=== PATIENT | female | born 1965 | race Two or more races ===

== ENCOUNTER 2018-08-30 08:22 | Day surgery (SDC) | payer MEDICAID ==
[2018-08-28 12:54] LABS: Basophils # (auto) 0 uL; Basophils % (auto) 0.7 % (0.0-2.0); Eosinophils # (auto) 0.2 uL; Hematocrit 44.8 % (36.0-46.0); Hemoglobin 15.1 g/dL (12.2-16.2); Lymphocytes # (auto) 2.1 uL; Lymphocytes % (auto) 32.3 % (10.0-50.0); Mean Corpuscular Hgb Conc. 33.8 g/dL (32.0-36.0); Mean Corpuscular Volume 91.8 fL (80.0-100.0); Monocytes # (auto) 0.7 uL; Monocytes % (auto) 10.9 % (0.0-12.0); Neutrophils # (auto) 3.4 uL; Neutrophils % (auto) 53.1 % (37.0-80.0); Nucleated Red Blood Cells % 0.1 %; Platelet Count (auto) 277 10^3/uL (140-450); Red Blood Cells 4.88 10^6/uL (4.0-5.20); Red Cell Distribution Width 13.7 % (11.8-14.3); White Blood Cell 6.4 10^3/uL (4.4-10.8)
[2018-08-28 13:24] LABS: Urine Bacteria NONE SEEN /hpf (None Seen); Urine Blood Negative /uL (Negative); Urine WBC <1 /hpf (0 - 5)
[2018-08-28 13:33] LABS: INR < 0.93 (0.9-1.15); Partial Thromboplastin Time 25.4 sec (23.64-32.05)
[2018-08-28 13:43] LABS: Albumin 3.5 g/dL (3.4-5.0); Calcium 9.4 mg/dL (8.5-10.1); Potassium 3.8 mmol/L (3.5-5.1)
[2018-08-28 13:47] LABS: BUN/Creatinine Ratio 24.1; Bilirubin, Total 0.6 mg/dL (0.2-1.0); Total Protein 7.9 g/dL (6.4-8.2)
[~2018-08-30] VITALS: Ht 152.4 cm; Wt 105.2 kg
[~2018-08-30 08:22] MED LIST: ALBUAER3 IN; HYDR25TA4 PO; IBUP800T24 PO; LEVO175T31 PO; LOSA-49 PO; POTA8TAB2 PO
[2018-08-30] MEDS ORDERED: ceFAZolin 1GM/50ML 50 ML IV ONE (09:09)
[2018-08-30] MEDS ORDERED: NEOMYCIN-BACITRACIN-POLYM 15GM TOP OINT TOP ONE (10:46)
[2018-08-30] MEDS ORDERED: ROPIVACAINE 0.5% (5MG/ML) 20ML AMPULE IJ ONE (10:46)
[2018-08-30] MEDS ORDERED: LABETALOL HCL 5 MG/ML 4ML SYRINGE IV PRN (11:00)
[2018-08-30] MEDS ORDERED: MIDAZOLAM HCL 1MG/1ML-2 ML VIAL IV PRN (11:00)
[2018-08-30] MEDS ORDERED: KETOROLAC TROMETH 15 mg/ml 1ML VL IV ONE (11:00)
[2018-08-30] MEDS ORDERED: HYDROmorphone HCL 2 MG/ML VL IV PRN (11:00)
[2018-08-30] MEDS ORDERED: ACCU-CHEK COMFORT CURVE STRIP VI ONE (11:00)
[2018-08-30] MEDS ORDERED: ePHEDrine SULFATE 50 MG/ML AMP IV PRN (11:00)
[2018-08-30] MEDS ORDERED: METOCLOPRAMIDE HCL 5MG/ml INJ 2ml VIAL IV ONE (11:00)
[2018-08-30] MEDS ORDERED: MEPERIDINE HCL (25 MG/ML) 1ML VIAL ONE (11:09)
[2018-08-30] MEDS ORDERED: MIDAZOLAM HCL 1MG/1ML-2 ML VIAL ONE (11:09)
[2018-08-30] MEDS ORDERED: fentaNYL CITRATE 100 MCG/2 ML VL ONE (11:09)
[2018-08-30] MEDS ORDERED: methylPREDNISolone ACETATE 80 MG/ML VL ONE (11:27)
[2018-08-30] MEDS ORDERED: DexAMETHasone SOD PHOS 10MG/1ML VIAL INJ ONE (11:31)
[2018-08-30] MEDS ORDERED: PROPOFOL 10 MG/ML 20 ML IV ONE (11:31)
[2018-08-30] MEDS ORDERED: MORPHINE SULFATE 4 MG/ML SYR/VIAL IV ONE (12:00)
[2018-08-30 12:22] VITALS: BP 115/65
== END 2018-08-30 12:34 | disposition home or self-care (01) ==
LOC: SUR 08:22
PROVIDERS: ATTEND Podiatrist Foot & Ankle Surgery
DX: M72.2 Plantar fascial fibromatosis (principal); E66.9 Obesity, unspecified; I10 Essential (primary) hypertension; E07.9 Disorder of thyroid, unspecified; Z98.890 Other specified postprocedural states; Z68.42 Body mass index [BMI] 45.0-49.9, adult
CPT/HCPCS: 29893; 36415; 80053; 81001; 85025; 85610; 85730; J0690; J1040; J1100; J1885; J2175; J2250; J2704; J2795; J3010; L3260

== ENCOUNTER 2018-10-18 07:22 | Day surgery (SDC) | payer MEDICAID ==
[2018-10-17 12:11] LABS: Urine Bacteria NONE SEEN /hpf (None Seen); Urine Blood Negative /uL (Negative); Urine Specific Gravity 1.013 (1.001-1.035); Urine WBC 1 /hpf (0 - 5)
[2018-10-17 12:39] LABS: Basophils # (auto) 0.1 uL; Basophils % (auto) 0.7 % (0.0-2.0); Eosinophils # (auto) 0.2 uL; Hematocrit 43.9 % (36.0-46.0); Hemoglobin 15.2 g/dL (12.2-16.2); Lymphocytes # (auto) 2.3 uL; Lymphocytes % (auto) 31.8 % (10.0-50.0); Mean Corpuscular Hemoglobin 31.6 pg (28.0-32.0); Mean Corpuscular Hgb Conc. 34.7 g/dL (32.0-36.0); Mean Corpuscular Volume 91.2 fL (80.0-100.0); Monocytes # (auto) 0.7 uL; Monocytes % (auto) 9.3 % (0.0-12.0); Neutrophils # (auto) 4.1 uL; Neutrophils % (auto) 55.2 % (37.0-80.0); Nucleated Red Blood Cells % 0.1 %; Platelet Count (auto) 274 10^3/uL (140-450); Red Blood Cells 4.81 10^6/uL (4.0-5.20); Red Cell Distribution Width 14.1 % (11.8-14.3); White Blood Cell 7.4 10^3/uL (4.4-10.8)
[2018-10-17 12:51] LABS: INR < 0.93 (0.9-1.15); Partial Thromboplastin Time 25.6 sec (23.64-32.05)
[2018-10-17 13:32] LABS: Albumin 3.4 g/dL (3.4-5.0); BUN/Creatinine Ratio 18.2; Potassium 3.7 mmol/L (3.5-5.1)
[2018-10-17 13:34] LABS: Bilirubin, Total 0.8 mg/dL (0.2-1.0)
[~2018-10-18] VITALS: Ht 152.4 cm; Wt 105.2 kg
[~2018-10-18 07:22] MED LIST changes: -ALBUAER3 IN; -IBUP800T24 PO; +LOSA-39 PO; -LOSA-49 PO
[2018-10-18] MEDS ORDERED: ceFAZolin 1GM/50ML 50 ML IV ONE (08:07)
[2018-10-18] MEDS ORDERED: NEOMYCIN-BACITRACIN-POLYM 15GM TOP OINT TOP ONE (09:00)
[2018-10-18] MEDS ORDERED: ROPIVACAINE 0.5% (5MG/ML) 20ML AMPULE IJ ONE (09:00)
[2018-10-18] MEDS ORDERED: fentaNYL CITRATE 100 MCG/2 ML VL ONE (09:21)
[2018-10-18] MEDS ORDERED: MIDAZOLAM HCL 1MG/1ML-2 ML VIAL ONE (09:21)
[2018-10-18] MEDS ORDERED: DexAMETHasone SOD PHOS 10MG/1ML VIAL INJ IV ONE (09:24)
[2018-10-18] MEDS ORDERED: MIDAZOLAM HCL 1MG/1ML-2 ML VIAL IV ONE (09:24)
[2018-10-18] MEDS ORDERED: ONDANSETRON HCL 4 MG/2 ML VIAL IV ONE (09:24)
[2018-10-18] MEDS ORDERED: PROPOFOL 10 MG/ML 20 ML IV ONE (09:45)
[2018-10-18] MEDS ORDERED: methylPREDNISolone ACETATE 80 MG/ML VL ONE (10:03)
[2018-10-18 10:46] VITALS: BP 111/59
== END 2018-10-18 10:53 | disposition home or self-care (01) ==
LOC: SUR 07:22
PROVIDERS: ATTEND Podiatrist Foot & Ankle Surgery
DX: M72.2 Plantar fascial fibromatosis (principal); E66.9 Obesity, unspecified; I10 Essential (primary) hypertension; E07.9 Disorder of thyroid, unspecified; Z68.42 Body mass index [BMI] 45.0-49.9, adult; Z98.890 Other specified postprocedural states; Z79.899 Other long term (current) drug therapy
CPT/HCPCS: 29893; 36415; 80053; 81001; 85025; 85610; 85730; J0690; J1040; J1100; J2250; J2405; J2704; J2795; J3010; L3260